=== PATIENT | female | born 1935 | race Caucasian/White ===

== ENCOUNTER → 2016-08-07 | Outpatient (CLI) | payer MEDICARE ==
--- NOTE | 2016-08-07 17:39 | PCVCIMAG ---
APPROVED REPORT Study performed: 08/07/2016 14:01:55 EXAM: Comprehensive 2D, Doppler, and color-flow Echocardiogram Patient Location: Echo lab Status: routine Other Information Study Quality: Adequate 2D Dimensions IVSd: 12.43 (7-11mm) LVDd: 33.62 mm LVPWs: 15.48 mm PWd: 12.12 (7-11mm)Ascending Ao: 27.25 (22-36mm) LVDs: 25.67 (25-40mm) Left Atrium: 27.86 (27-40mm) Aortic Root: 24.49 mm Lilly's LVEF: 48.36 % Volumes Left Atrial Volume (Systole) Single Plane 4CH: 23.26 mLSingle Plane 2CH: 27.54 mL Aortic Valve AoV Peak Kvng.: 1.83 m/s AO Peak Gr.: 13.36 mmHgLVOT Max P.74 mmHg AO Mean Gr.: 7.63 mmHg AO V2 Mean: 1.34 m/sLVOT Max V: 1.20 m/s AO V2 VTI: 36.10 cm Mitral Valve E/A Ratio: 0.7 MV Decel. Time: 305.30 ms MV E Max Kvng.: 0.72 m/s MV A Kvng.: 1.03 m/s IVRT: 124.57 ms Pulmonary Valve PV Peak Gr.: 2.80 mmHg Pulmonary Vein P Vein S: 0.70 m/sP Vein A: 0.33 m/s P Vein D: 0.29 m/sP Vein A Dur.: 55.4 msec P Vein S/D Ratio: 2.41 Left Ventricle The left ventricle is normal size. There is normal LV segmental wall motion. Mild concentric left ventricular hypertrophy. Left ventricular systolic function is normal. The left ventricular ejection fraction is within the normal range. LVEF is 60-65%. Grade I diastolic dysfunction Right Ventricle The right ventricle is normal size. The right ventricular systolic function is normal. Atria The left atrium size is normal. The right atrium size is normal. Aortic Valve The aortic valve is normal in structure. No aortic regurgitation is present. There is no aortic valvular stenosis. Mitral Valve The mitral valve is normal in structure. There is no mitral valve regurgitation noted. No evidence of mitral valve stenosis. Tricuspid Valve The tricuspid valve is normal in structure. There is no tricuspid valve regurgitation noted. Pulmonic Valve The pulmonary valve is normal in structure. There is no pulmonic valvular regurgitation. Great Vessels The aortic root is normal in size. IVC is normal in size and collapses with >50% inspiration Pericardium There is no pericardial effusion. <Conclusion> Left ventricular systolic function is normal. There is normal LV segmental wall motion. LVEF is 60-65%. Grade I diastolic dysfunction The aortic valve is normal in structure. No aortic regurgitation or stenosis The mitral valve is normal in structure. No mitral valve regurgitation noted. Pulmonary artery pressure could not be reliably ascertained There is no pericardial effusion.
--- NOTE | 2016-08-07 17:47 | PCVCIMAG ---
APPROVED REPORT Exam: Stress Echocardiogram Indication: Dyspnea Stress Nurse: Lisa Gonzalez RN Status: routine HR: 105 bpm Stress Test Details Stress Test: Exercise stress was performed using a manual protocol. HR Resting HR: 105 bpmMax Heart Rate (APMHR): 137 bpm Max HR Achieved: 151 bpmTarget HR (85% APMHR): 116 bpm % of APMHR: 110 HR response to stress: Normal HR response to stress BP Resting BP: 122/80 mmHg Max BP: 152/84 mmHg ECG Resting ECG: Sinus Rhythm Stress ECG: Sinus Bradycardia ST Change: Horizontal ST depression Maximum ST Deviation: 1 mm Clinical Reason for Termination: Leg pain,Maximal effort Stress Symptoms: Leg Fatigue Exercise duration: 3 min 45 sec Exercise capacity: 6.30 METs Overall Exercise Capacity for Age: Normal Angina Score: None Stress ECG Conclusion Clinical: Non-ischemic ECG: Ischemic, guevara false positive response in light of LVH Echocardiographic response: Nonischemic Stress Echo: Low risk for ischemia Ortiz Treadmill Score is -2.0 which is Moderate risk. Pre-Stress Echo The resting Echocardiogram showed normal left ventricular contractility with an estimated Ejection Fraction of about 55-60%. Post-Stress Echo The stress Echocardiogram showed normal left ventricular contractility with an estimated Ejection Fraction of about 65-70%. Conclusion Clinical Response: Non-ischemic Exercise Capacity: Average Stress ECG Response: Equivocal Stress Echo Images: Non-ischemic
== END | disposition home or self-care (01) ==
LOC: PCVCIMAG 13:36
PROVIDERS: ATTEND Internal Medicine
DX: I51.7 Cardiomegaly (principal); R06.00 Dyspnea, unspecified
CPT/HCPCS: 93306; 93351